=== PATIENT | male | born 1950 | race Caucasian/White ===

== ENCOUNTER 2021-04-30 08:07 | Day surgery (SDC) | payer OTHER ==
[~2021-04-30] VITALS: Ht 175.3 cm; Wt 82.2 kg
[2021-04-30] MEDS ORDERED: EZALLOR SPRINKL10 MG PO (08:49)
[2021-04-30] MEDS ORDERED: LANS30EC PO (08:49)
[2021-04-30] MEDS ORDERED: MAGCHL64ER (08:50)
[2021-04-30] MEDS ORDERED: FISH OIL 1,2001 EAC7 PO (08:50)
[2021-04-30] MEDS ORDERED: EUTHYROX88 MCG PO (08:50)
--- NOTE | 2021-04-30 08:58 | NUR ---
04/30/21 0858 Bud Leon CALL LIGHT WITHIN REACH. TETRA DROPS AT 0851 PLEDGETT AT 0824
== END 2021-04-30 10:41 | disposition home or self-care (01) ==
LOC: ORSCSDS 08:07
PROVIDERS: Ophthalmology
PROC: 08RK3JZ Replacement of Left Lens with Synthetic Substitute, Percutaneous Approach (ICD-10-PCS; principal; 2021-04-30 09:30)
DX: H25.12 Age-related nuclear cataract, left eye (principal); H21.81 Floppy iris syndrome; I10 Essential (primary) hypertension; Z87.891 Personal history of nicotine dependence; K21.9 Gastro-esophageal reflux disease without esophagitis; E78.00 Pure hypercholesterolemia, unspecified; Z79.899 Other long term (current) drug therapy
CPT/HCPCS: J2001; J2250; J3010; J3301; J7040; V2632

== ENCOUNTER 2021-05-21 08:16 | Day surgery (SDC) | payer OTHER ==
[~2021-05-21] VITALS: Ht 175.3 cm; Wt 82.1 kg
[~2021-05-21 08:16] MED LIST: EUTHYROX88 MCG PO; EZALLOR SPRINKL10 MG PO; FISH OIL 1,2001 EAC7 PO; LANS30EC PO; MAGCHL64ER
== END 2021-05-21 10:15 | disposition home or self-care (01) ==
LOC: ORSCSDS 08:16
PROVIDERS: Ophthalmology
PROC: 08RJ3JZ Replacement of Right Lens with Synthetic Substitute, Percutaneous Approach (ICD-10-PCS; principal; 2021-05-21 09:30)
DX: H25.11 Age-related nuclear cataract, right eye (principal); H21.81 Floppy iris syndrome; I10 Essential (primary) hypertension; J45.909 Unspecified asthma, uncomplicated; E03.9 Hypothyroidism, unspecified; Z79.899 Other long term (current) drug therapy
CPT/HCPCS: J2001; J2250; J2310; J3010; J3301; J7040; V2632